=== PATIENT | male | born 1955 | race Caucasian/White ===

== ENCOUNTER 2016-08-07 12:32 | Emergency (ER) | payer SELFPAY ==
[~2016-08-07] VITALS: Ht 165.1 cm; Wt 65.8 kg
[2016-08-07 12:36] VITALS: BP 170/95
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
--- NOTE | 2016-08-07 12:48 | NUR ---
PT AAO CLAIMED IM GOING TO BE ALRIGHT
--- NOTE | 2016-08-07 13:07 | NUR ---
PA AT BEDSIDE, PT AAO
--- NOTE | 2016-08-07 13:35 | NUR ---
PT SLEEPING AT THIS TIME, NO DISTRESS NOTED, NO SOB NOTED.
--- NOTE | 2016-08-07 13:50 | NUR ---
DR. EMANUEL AT BEDSIDE
--- NOTE | 2016-08-07 13:54 | NUR ---
XRAY AT BEDSIDE
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
--- NOTE | 2016-08-07 14:12 | NUR ---
PT SLEEPING AT THIS TIME, VITAL SIGN STABLE
[2016-08-07] MEDS ORDERED: BACITRACIN OINT 500 UNITS/GM PKT TP ONE ×3 (15:40→15:45)
[2016-08-07 16:04] VITALS: BP 142/85
== END 2016-08-07 16:05 | disposition home or self-care (01) ==
LOC: MED 12:32
DX: S80.812A Abrasion, left lower leg, initial encounter (principal); S80.811A Abrasion, right lower leg, initial encounter; R03.0 Elevated blood-pressure reading, without diagnosis of hypertension; V19.49XA Pedal cycle driver injured in collision with other motor vehicles in traffic accident, initial encounter; Y93.89 Activity, other specified; Y92.89 Other specified places as the place of occurrence of the external cause; Y99.8 Other external cause status
CPT/HCPCS: 73590; 90471; 90715; 99284